=== PATIENT | female | born 1970 | race Caucasian/White ===

== ENCOUNTER 2022-04-28 07:46 | Day surgery (SDC) | payer OTHER, SELFPAY ==
--- NOTE | 2022-04-27 11:48 | HP.PCM_ITS ---
History and Physical Date of Admission: 04/28/22 Pre-Op History and Physical ? HPI: The patient is a 51 year old female presenting for discussion regarding dysmenorrhea and AUB and polyp. Pt reports irregular bleeding- sometimes heavy, other times light. Had ultrasound showed possible endocervical polyp. Had an Endo major biopsy which showed possible polyp as well as benign endometrial tissue. Patient would like to proceed with hysteroscopy D&C polypectomy with insertion of a Mirena IUD. Patient had preoperative medical clearance performed by her primary physician as well as a stress test done. ? pre-operative visit. She is scheduled for Hysteroscopy D&C, polypectomy with symphion and IUD mirena insertion, for on AUB, dysmenorrhea, endocervical polyp. Procedure discussed along with risks, benefits and complications. Other alternatives discussed for management. Consent form signed? Yes. ? ? PAST MEDICAL HISTORY PAST MEDICAL HISTORY Diagnosis Date ? Anxiety ? ? Asthma ? ? Chronic obstructive pulmonary disease (COPD) (HCC) ? ? Dysthymic disorder ? ? Depression (non-psychotic) ? Hypertension ? ? Migraines ? ? Snoring ? ? ? PAST SURGICAL HISTORY PAST SURGICAL HISTORY Procedure Laterality Date ? NEUROPLASTY &/TRANSPOS MEDIAN NRV CARPAL TUNNE ? ? ? Carpal tunnel decomp ? ? ? CURRENT MEDICATIONS Current Outpatient Medications Medication Sig Dispense Refill ? SUMAtriptan (IMITREX) 50 mg tablet TAKE 1 TABLET NEEDED FOR MIGRAINE HEADACHE. DO NOT TAKE MORE THAN 2 TABLETS IN A 24 HOUR PERIOD. 9 tablet 1 ? lisinopril-hydroCHLOROthiazide (PRINZIDE,ZESTORETIC) 10-12.5 mg per tablet Take 1 tablet by mouth once daily. 90 tablet 3 ? ibuprofen (MOTRIN) 600 mg tablet TAKE 1 TABLET BY MOUTH EVERY 6 HOURS NEEDED FOR PAIN. FOR PAIN. 90 tablet 1 ? cyclobenzaprine (FLEXERIL) 10 mg tablet Take 1 tablet by mouth twice daily as needed. 60 tablet 1 ? nicotine (NICODERM) 21 mg/24 hr Apply 1 Patch as directed every 24 hours. 42 Patch 0 ? nicotine (NICODERM) 14 mg/24 hr Apply 1 Patch as directed every 24 hours for 14 days. No smoking with patch. 14 Patch 0 ? nicotine (NICODERM) 7 mg/24 hr Apply 1 Patch as directed every 24 hours for 14 days. 14 Patch 0 ? miSOPROStol (CYTOTEC) 200 mcg tablet Insert 2 tablets vaginally night prior to endometrial biopsy and 2 tablets morning of procedure. Each dose should be in vagina for 6-8 hours. (Patient not taking: No sig reported) 4 tablet 0 ? albuterol HFA (PROVENTIL HFA, VENTOLIN HFA) 90 mcg/actuation inhaler Inhale 2 Puffs as instructed every 4 hours as needed for wheezing/shortness of breath. 18 Each 4 ? citalopram (CELEXA) 40 mg tablet TAKE 1 TABLET BY MOUTH EVERY DAY 90 tablet 3 ? ondansetron orally disintegrating (ZOFRAN ODT) 4 mg disintegrating tablet Take 1 tablet by mouth every 8 hours as needed for Nausea/Vomiting. 10 tablet 1 ? TENS Units frances 1 Device as needed. Use as instructed. 1 Device 0 ? Back Brace misc Only wear as prn basis. 1 Each 0 ? TENS Units frances 1 Device as directed. 1 Device 0 ? TENS unit and electrodes cmpk 1 Units as directed. 1 Device 0 ? Current Facility-Administered Medications Medication Dose Route Frequency Provider Last Rate Last Admin ? perflutren lipid microspheres 1.3 mL in NaCl (PF) 0.9% 10 mL injection (DEFINITY) INTRAVENOUS DIRECTED PRN Diallo Jones APRN.PRINCIPAL ENGINEER ? sodium chloride 0.9 % (flush) 10 mL (BD POSIFLUSH) 10 mL INTRAVENOUS DIRECTED PRN Diallo Jones APRN.PRINCIPAL ENGINEER ? ? ALLERGIES: Advair Diskus [Fluticasone Propion-Salmeterol] and Aspirin [Other] ? PERSONAL HISTORY: SOCIAL HISTORY Social History ? Tobacco Use ? Smoking status: Every Day ? ? Packs/day: 1.00 ? ? Years: 37.00 ? ? Pack years: 37.00 ? ? Types: Cigarettes ? ? Start date: 09/27/1984 ? Smokeless tobacco: Never Vaping Use ? Vaping Use: Never used Substance Use Topics ? Alcohol use: No ? Drug use: No ? FAMILY HISTORY: FAMILY HISTORY FAMILY HISTORY Problem Relation Age of Onset ? Hypertension Mother ? ? Cancer Mother ? ? unsure type ? Cancer Sister ? ? uterine ? Heart Maternal Grandmother ? ? Hypertension Maternal Grandmother ? ? Diabetes Maternal Grandmother ? ? Breast Cancer Maternal Grandmother ? ? Heart Maternal Grandfather ? ? Heart Paternal Grandmother ? ? Ischemic Heart Disease Paternal Grandmother ? ? Breast Cancer Paternal Grandmother 62 ? Diabetes Maternal Aunt ? ? Ischemic Heart Disease Maternal Aunt ? ? ? REVIEW OF SYMPTOMS: negative except as noted above PHYSICAL EXAMINATION: ? VITALS: Blood pressure 124/84, weight 148 lb (67.1 kg), last menstrual period 03/22/2022. ? GENERAL: The patient is well nourished, well hydrated in no acute distress. , The patient is oriented to time, place, and person. NECK: full range of motion LUNGS: Clear to auscultation bilaterally. no wheezes, rhonchi or rales HEART: Regular rate and rhythm, Normal heart sounds, and No murmurs or gallops GENITALIA: exam deferred ? IMPRESSION: AUB, dysmenorrhea, endocervical polyp ? PLAN: Hysteroscopy, D&C, polypectomy with symphion, Mirena IUD ? Pt has been counseled on risks/benefits and alternatives of surgery including but not limited to anesthesia, bleeding, infection, uterine perforation with subsequent injury to pelvic structures including bowel, bladder, ureters and vessels. Pt wishes to proceed with surgery at this time. ? Pre op clearance obtained and stress test done and resulted. ? I have reviewed and updated past medical and surgical history, medications and allergies Inna Sandhu MD Office Visit on 04/18/2022 Office Visit on 04/18/2022 Note viewed by patient
[2022-04-28] VITALS (9 sets, daily range): BP systolic 119–153; BP diastolic 59–106; PULSE 70–82; RESP 16–18; TEMP 36.5–37.1; O2SAT 97–100; BMI 26.0
[2022-04-28] MEDS: Lactated Ringers 1,000 ML 15 ML IV (08:25)
[2022-04-28 08:32] LABS: Internal QC Validated? YES +Cl - CLEAR BKGD; Pregnancy, Urine Negative Negative
[2022-04-28 08:41] LABS: Hematocrit 42.4 % (37-47); Mean Corpuscular Hgb 32.6 pg (27.0-32.0); Mean Corpuscular Volume 98.6 fL (81-99); Mean Platelet Vol. 9.9 fl (6.2-12.0); Platelet Count 228 K/mm3 (150-450); RBC Distribution Width CV 12.5 % (11.6-14.6); RBC Distribution Width SD 45.1 fl (35.1-43.9); White Blood Count 8.8 K/mm3 (4.4-11.0)
[2022-04-28 08:53] LABS: BUN 19 mg/dL (7-18); Creatinine, Serum 0.89 mg/dL (0.55-1.02); Estimated Creatinine Clearance 63.13 ml/min; Glucose 89 mg/dL (74-106)
[2022-04-28 08:54] LABS: Anion Gap 0 (5-15); BUN/Creat Ratio 21.4 RATIO (10-20); Calcium,Total 9.4 mg/dL (8.5-10.1); Chloride 108 mmol/L (98-107); EST Glomerular Filtration Rate 71 mL/min (>60); Est Glom Filt Rate - Afr Amer 85 mL/min (>60); Potassium 4.7 mmol/L (3.5-5.1); Sodium Level 139 mmol/L (136-145)
--- NOTE | 2022-04-28 09:37 | OP.PCM_ITS ---
Report of Operation Date of Procedure: 04/28/22 Pre-Operative Diagnosis: AUB, Endocervical polyp, contraception management Post-Operative Diagnosis: AUB, contraception management Surgery/Procedure Performed:: Hysteroscopy, D&C, Mirena IUD insertion Description of Surgical Findings:: Small areas of endometrial tissue thickness but no definitive polypoid tissue. IUD placed without difficulty. Surgeon: Inna Doll Type of Anesthesia: MAC Special Medications: none Specimen's removed: endometrial curettings Drains: none Estimated Blood Loss (mL): <5 Fluids Replaced: 500 Description of Procedure: Informed consent was obtained the patient was taken the operating room she was placed in supine position. She was given anesthesia. She was then placed in the [facility] where she was prepped and draped in the normal sterile fashion. At this time the weighted speculum was placed in the posterior fornix of vagina. Single-tooth tenaculum was used to gently grasp the anterior lip the cervix. At this time the uterine cavity was sounded to approximately 8 cm. Gentle dilatation was performed once adequate dilatation of the cervix was achieved the hysteroscope using normal saline as a distention medium was placed. Tubal ostia visualized. There were a few areas of increased tissue density noted but no definitive polyp tissue identified. Symphion resecting device used to obtain endometrial curettings. Tissue will be sent to pathology for evaluation. Mirena IUD placed at uterine fundus without difficulty. Strings cut to 2cm without difficulty. Tenaculum removed. Good hemostasis. Instrument, lap count correct x 2. Vaginal Sweep was negative. Grafts/Implants Used: MIRENA IUD Procedure Start Time: 09:25 Procedure Stop Time: 09:36 Complications none Admit VTE Documentation VTE Present on Admission: Yes VTE Mechan Device Prophylaxis: SCD's VTE Pharm Prophylaxis ordered?: No Reason prophylaxis not ordered:: Procedure Not Indicated
--- NOTE | 2022-04-28 09:42 | DCINST_ITS ---
Discharge Instructions Procedure D&C Diet Discharge Diet: No restrictions Activity May resume sexual activity in: 1 week Dressing / Incision Call your doctor if you observe: Fever of 101 or Higher, Inability to urinate, Using more than 1 pad per hour and Uncontrolled pain Follow Up Care Please Follow Up With: Inna Doll MD When: 1-2 weeks post OP if you need an appointment please call [phone] Test Results: Test results from this visit will be discussed in further detail at your follow- up appointment, if applicable. Discharge Plan Admission Attending Provider: Inna Doll Primary Care Provider: Edil Monzon Discharge Orders/Prescriptions Prescriptions: No Action multivitamin Tablet 1 tab PO DAILY cyclobenzaprine 10 mg tablet 10 mg PO PRN PRN (Reason: Pain) Label Comments: TAKE 1 TABLET BY MOUTH TWICE A DAY NEEDED cyanocobalamin (vitamin B-12) [Vitamin B-12] 100 mcg Tablet 100 mcg PO DAILY citalopram 40 mg tablet 40 mg PO DAILY Label Comments: TAKE 1 TABLET BY MOUTH EVERY DAY sumatriptan succinate 50 mg tablet 50 mg PO PRN PRN (Reason: MIGRAINES) lisinopril-hydrochlorothiazide 10-12.5 mg tablet 1 tab PO DAILY Label Comments: TAKE 1 TABLET BY MOUTH EVERY DAY ibuprofen 600 mg tablet 600 mg PO PRN PRN (Reason: Pain) albuterol sulfate 90 mcg/actuation HFA aerosol inhaler 2 puff INHALATION PRN PRN (Reason: ASTHMA) Label Comments: INHALE 2 PUFFS BY MOUTH EVERY 6 HOURS NEEDED DIRECTED Referrals / Follow Up: Edil Monzon MD [Primary Care Provider] - Disposition Disposition (needs filled in before D/C Order can be placed): Home, Self Care
--- NOTE | 2022-04-28 10:05 | EMB_PTH ---
PATIENT: YANNI ESCAMILLA LOC: [facility] [place] U#:[id number] AGE/SX: 51/F ROOM: RE04/28/[address]: Dr. Inna Doll, MDDOB: 1970 BED: DIS: 04/28/2022 SPEC #: [id number] RECD: 04/28/22 10:15 STATUS: CHET LINDA #: [id number] MAEGAN: 04/28/22 10:[address]: Inna Doll DEPT: SURGICAL PATHOLOGY RECD BY: Blanca Maldonado ENTERED: 04/28/22 12:45 SP TYPE: ENDOM BX/C OTHR DR: Dr. Edil Monzon MD Tissues: Endometrium, NOS Procedures: Surgery Specimen Level IV HEADER OPERATION: Hysteroscopy, D & C, Mirena insertion PRE-OP DIAGNOSIS: Abnormal uterine bleeding, dysmenorrhea, endocervical polyp TISSUE SUBMITTED: Endometrial curettings MICROSCOPIC DIAGNOSIS Endometrial curettings: Weakly proliferative endometrium. AMMY:eric 04/29/2022 MICROSCOPIC DESCRIPTION Slides are reviewed. GROSS DESCRIPTION Received in fixative is one container labeled with the patient's name and designated endometrial curettings. The specimen consists of multiple fragments of pink hemorrhagic soft tissue that in aggregate measure 1.5 x 1.5 x 0.2 cm. The specimen is totally submitted in one cassette. / AMMY:eric 04/28/2022 TC:5 CPT: 35392
[2022-04-28] MEDS: HYDROcodone Bitartrate/Apap 5/325 Tablet PO (11:12)
== END 2022-04-28 11:45 | disposition home or self-care (01) ==
LOC: SDC 07:50 → AC 07:52
PROVIDERS: PCP Family Medicine; Referring Provider Obstetrics & Gynecology; Visit Provider Obstetrics & Gynecology
PROC: 0UB98ZZ Excision of Uterus, Via Natural or Artificial Opening Endoscopic (ICD-10-PCS; CPT 58558; principal; 2022-04-28 09:50)
DX: N93.9 Abnormal uterine and vaginal bleeding, unspecified (principal); J44.9 Chronic obstructive pulmonary disease, unspecified; N84.1 Polyp of cervix uteri; F34.1 Dysthymic disorder; F17.210 Nicotine dependence, cigarettes, uncomplicated; I10 Essential (primary) hypertension; N94.6 Dysmenorrhea, unspecified
CPT/HCPCS: 58558; 58300; 00952; 80048; 81025; 85027; 88305; J7120; J2405